=== PATIENT | male | born 1980 | race African-American/Black ===

== ENCOUNTER 2020-06-05 09:25 | Emergency (ER) | payer OTHER ==
[~2020-06-05] VITALS: Ht 175.3 cm; Wt 72.1 kg
--- NOTE | 2020-06-05 09:37 | NUR ---
ED Nurse Note: Pt ambulated to ED from home d/t RT flank pain that goes on his lower back since . Pt denies any nausea/vomiting, denies injury nor trauma nor difficulty urinating. Pt is AOx4, calm and cooperative to care; VSS on RA; afebrile on triage.
[2020-06-05] MEDS ORDERED: Omnipaque-300 100ml vial INJ PRN (09:45)
--- NOTE | 2020-06-05 09:45 | NUR ---
ED Nurse Note: blood and urine specimen collected, sent to lab
--- NOTE | 2020-06-05 09:49 | Emergency Room Report ---
History of Present Illness General Chief Complaint: Back Pain-No Injury Source: Patient Present Illness HPI 39-year-old male no past medical history no surgical history presents with achy right lower quadrant pain aggravated with movement alleviated with rest severity is moderate, intermittent no dysuria no fevers no chills no diarrhea patient presents for evaluation and treatment Allergies: Coded Allergies: No Known Allergies (Unverified , 06/05/20) COVID-19 Screening Contact w/high risk pt: No Experienced COVID-19 symptoms?: No COVID-19 Testing performed ELECTRIC SYSTEM OPERATOR: No Patient History Past Medical History: see triage record Reviewed Nursing Documentation: PMH: Agreed; PSxH: Agreed Nursing Documentation-PMH Past Medical History: No Stated History Review of Systems All Other Systems: negative except mentioned in HPI Physical Exam Vital Signs Date Time Temp Pulse Resp B/P (MAP) Pulse Ox O2 Delivery O2 Flow Rate FiO2 06/05/20 09:30 98.2 84 17 122/88 (99) 95 Room Air Sp02 EP Interpretation: reviewed, normal General Appearance: well appearing, no apparent distress, alert Head: normocephalic, atraumatic Eyes: bilateral eye PERRL, bilateral eye EOMI ENT: uvula midline, moist mucus membranes Neck: supple, thyroid normal, supple/symm/no masses Respiratory: lungs clear, no respiratory distress, no retraction, no accessory muscle use Cardiovascular #1: normal peripheral pulses, regular rate, rhythm, no edema, no gallop, no murmur Gastrointestinal: soft, no guarding, no rebound, tenderness - Right lower quadrant pain, no rebound no guarding Musculoskeletal: normal inspection Neurologic: alert, oriented x3 Psychiatric: mood/affect normal Skin: no rash, warm/dry Medical Decision Making Diagnostic Impression: Primary Impression: Strain of abdominal wall Qualified Codes: S39.011A - Strain of muscle, fascia and tendon of abdomen, initial encounter ER Course 39-year-old male presents with most likely abdominal wall strain differential includes UTI, pyelonephritis, appendicitis CT scan negative patient found to have an incidental lesion in the liver patient counseled to follow-up and get an ultrasound of the liver We will provide patient with pain regimen to go home with Disposition home with return precautions Laboratory Tests Test 06/05/20 09:45 White Blood Count 6.4 K/UL (4.8-10.8) Red Blood Count 5.52 M/UL (4.70-6.10) Hemoglobin 16.1 G/DL (14.2-18.0) Hematocrit 45.7 % (42.0-52.0) Mean Corpuscular Volume 83 FL (80-99) Mean Corpuscular Hemoglobin 29.1 PG (27.0-31.0) Mean Corpuscular Hemoglobin Concent 35.2 G/DL (32.0-36.0) Red Cell Distribution Width 11.2 % (11.6-14.8) L Platelet Count 277 K/UL (150-450) Mean Platelet Volume 6.1 FL (6.5-10.1) L Neutrophils (%) (Auto) 60.2 % (45.0-75.0) Lymphocytes (%) (Auto) 25.7 % (20.0-45.0) Monocytes (%) (Auto) 9.4 % (1.0-10.0) Eosinophils (%) (Auto) 2.4 % (0.0-3.0) Basophils (%) (Auto) 2.3 % (0.0-2.0) H Urine Color Yellow Urine Appearance Clear Urine pH 5 (4.5-8.0) Urine Specific [place] 1.025 (1.005-1.035) Urine Protein Negative (NEGATIVE) Urine Glucose (UA) Negative (NEGATIVE) Urine Ketones Negative (NEGATIVE) Urine Blood 2+ (NEGATIVE) H Urine Nitrite Negative (NEGATIVE) Urine Bilirubin Negative (NEGATIVE) Urine Urobilinogen Normal MG/DL (0.0-1.0) Urine Leukocyte Esterase Negative (NEGATIVE) Urine RBC 2-4 /HPF (0 - 0) H Urine WBC 0 /HPF (0 - 0) Urine Squamous Epithelial Cells None /LPF (NONE/OCC) Urine Bacteria Occasional /HPF (NONE) Urine Mucus Moderate /LPF (NONE/OCC) H Sodium Level 137 MMOL/L (136-145) Potassium Level 4.1 MMOL/L (3.5-5.1) Chloride Level 104 MMOL/L (98-107) Carbon Dioxide Level 26 MMOL/L (21-32) Anion Gap 7 mmol/L (5-15) Blood Urea Nitrogen 15 mg/dL (7-18) Creatinine 0.9 MG/DL (0.55-1.30) Estimated Glomerular Filtration Rate > 60 mL/min (>60) Glucose Level 111 MG/DL (74-106) H Calcium Level 8.7 MG/DL (8.5-10.1) Total Bilirubin 0.5 MG/DL (0.2-1.0) Aspartate Amino Transferase (AST) 15 U/L (15-37) Alanine Aminotransferase (ALT) 16 U/L (12-78) Alkaline Phosphatase 46 U/L (46-116) Total Protein 6.4 G/DL (6.4-8.2) Albumin 4.0 G/DL (3.4-5.0) Globulin 2.4 g/dL Albumin/Globulin Ratio 1.7 (1.0-2.7) Lipase 80 U/L (73-393) CT/MRI/US Diagnostic Results CT/MRI/US Diagnostic Results : Impression Procedure: CT Abdomen Pelvis w/Contrast Clinical Indication: Abdominal pain Technique: No oral contrast utilized, per emergency room physician request IV administration nonionic contrast. Venous obtained through the abdomen and pelvis. Multiplanar reconstructions were generated. Total dose length product 220 mGycm. CTDIvol(s) 4 mGy. Dose reduction achieved using automated exposure control Comparison: none Findings: Lack of enteric contrast limits assessment of the GI tract. The appendix is normal. No evidence of diverticulosis or diverticulitis. No small bowel di stention. No free or loculated intraperitoneal gas or fluid. There is a small umbilical hernia which contains fat. The distal esophagus,, stomach, duodenum are unremarkable. The liver is hypoattenuating, consistent with diffuse fatty change. An 11 mm low-attenuation lesion is in the periphery of segment 4A, demonstrates nonspecific soft tissue attenuation. Subcentimeter low-attenuation lesion also seen in segment 4A, too small to characterize. The gallbladder, bile ducts, pancreas, spleen, adrenals, kidneys are all unremarkable. No retroperitoneal or mesenteric mass or adenopathy. No pelvic mass or adenopathy. The included lung bases are clear. The bones are unremarkable. Impression: Limited assessment of the GI tract, due to lack of enteric contrast administration No definite acute abnormality Fatty liver 1 mm low-attenuation lesion in the periphery of segment 4A of the liver, nonspecific. Consider ultrasound to better characterize The CT scanner at [facility] is accredited by the [employer] and the scans are performed using protocols designed to limit radiation exposure to as low as reasonably achievable to attain images of sufficient resolution adequate for diagnostic evaluation. Dictated By: Carlos Bach MD Electronically Signed By:Carlos Bach MD Signed Date/Time06/05/20 1205 CC: Cameron Clark [id number] 0 Last Vital Signs Date Time Temp Pulse Resp B/P (MAP) Pulse Ox O2 Delivery O2 Flow Rate FiO2 06/05/20 09:30 98.2 84 17 122/88 (99) 95 Room Air Disposition: HOME, SELF-CARE Condition: Stable Scripts Lidocaine Patch* (Lidoderm Patch*) 1 Each Adh..patch 1 PATCH TOPIC DAILY, #7 PATCH 0 Refills Patch(es) may remain in place for up to 12 hours in any 24-hour period. Prov: Cameron Clark MD 06/05/20 Methocarbamol* (ROBAXIN-750*) 750 Mg Tablet 750 MG PO QID, #28 TAB 0 Refills Prov: Cameron Clark MD 06/05/20 Acetaminophen (Tylenol) 325 Mg Tablet 650 MG ORAL Q6H PRN for Prn Pain/Headache/Temp > 101, #30 TAB 0 Refills Prov: Cameron Clark MD 06/05/20 Naproxen* (NAPROSYN*) 250 Mg Tablet 500 MG ORAL TWICE A DAY, #60 TAB 0 Refills Prov: Cameron Clark MD 06/05/20 Referrals: NOT CHOSEN IPA/,REFERRING (PCP) [facility]. [facility] Patient Instructions: Muscle Strain, [id number] Additional Instructions: The patient was provided with discharge instructions, notified to follow-up with a primary care doctor and or specialist in the next 24-48 hours, and to return to the ED if they have worsening of their symptoms. Please note that this report is being documented using An[employer] technology. This can lead to erroneous entry secondary to incorrect interpretation by the dictating instrument. There was an incidental lesion noted on the liver, please have an outpatient ultrasound of the liver by your PCP Cameron Clark MD Jun 05, 2020 09:49
[2020-06-05 10:04] VITALS: BP 122/88
[2020-06-05 10:09] LABS: APPEARANCE,URINE CLEAR; BASOPHILS % (AUTO) 2.3 % (0.0-2.0); BILIRUBIN, URINE NEGATIVE (NEGATIVE); EOSINOPHILS % (AUTO) 2.4 % (0.0-3.0); GLUCOSE, URINE (UA) NEGATIVE (NEGATIVE); HEMATOCRIT 45.7 % (42.0-52.0); HEMOGLOBIN 16.1 G/DL (14.2-18.0); KETONES,URINE NEGATIVE (NEGATIVE); LEUKOCYTE ESTERASE ,URINE NEGATIVE (NEGATIVE); LYMPHOCYTES % (AUTO) 25.7 % (20.0-45.0); MEAN CORPUSCULAR VOLUME 83 FL (80-99); MONOCYTES % (AUTO) 9.4 % (1.0-10.0); NEUTROPHILS % (AUTO) 60.2 % (45.0-75.0); NITRITE,URINE NEGATIVE (NEGATIVE); PH,URINE 5 (4.5-8.0); PLATELET COUNT 277 K/UL (150-450); PROTEIN,URINE NEGATIVE (NEGATIVE); RED BLOOD COUNT 5.52 M/UL (4.70-6.10); RED CELL DISTRIBUTION WIDTH 11.2 % (11.6-14.8); UROBILINOGEN,URINE NORMAL MG/DL (0.0-1.0); WHITE BLOOD COUNT 6.4 K/UL (4.8-10.8)
[2020-06-05 10:10] LABS: COLOR,URINE YELLOW
[2020-06-05 10:19] LABS: ANION GAP 7 mmol/L (5-15); BLOOD UREA NITROGEN 15 mg/dL (7-18); CALCIUM 8.7 MG/DL (8.5-10.1); CARBON DIOXIDE 26 MMOL/L (21-32); CHLORIDE 104 MMOL/L (98-107); CREATININE 0.9 MG/DL (0.55-1.30); POTASSIUM 4.1 MMOL/L (3.5-5.1); SODIUM 137 MMOL/L (136-145)
[2020-06-05 10:23] LABS: ALANINE AMINOTRANSFERASE 16 U/L (12-78); ALBUMIN/GLOBULIN RATIO 1.7 (1.0-2.7); ALKALINE PHOSPHATASE 46 U/L (46-116); ASPARTATE AMINO TRANSFERASE 15 U/L (15-37); BILIRUBIN,TOTAL 0.5 MG/DL (0.2-1.0)
--- NOTE | 2020-06-05 11:29 | NUR ---
ED Nurse Note: pt returned from ct
[2020-06-05] MEDS ORDERED: Ketorolac 30mg Inj IV ONE (12:00)
--- NOTE | 2020-06-05 12:10 | Diagnostic Imaging Report ---
Clinical Indication: Abdominal pain Technique: No oral contrast utilized, per emergency room physician request IV administration nonionic contrast. Venous obtained through the abdomen and pelvis. Multiplanar reconstructions were generated. Total dose length product 220 mGycm. CTDIvol(s) 4 mGy. Dose reduction achieved using automated exposure control Comparison: none Findings: Lack of enteric contrast limits assessment of the GI tract. The appendix is normal. No evidence of diverticulosis or diverticulitis. No small bowel distention. No free or loculated intraperitoneal gas or fluid. There is a small umbilical hernia which contains fat. The distal esophagus,, stomach, duodenum are unremarkable. The liver is hypoattenuating, consistent with diffuse fatty change. An 11 mm low-attenuation lesion is in the periphery of segment 4A, demonstrates nonspecific soft tissue attenuation. Subcentimeter low-attenuation lesion also seen in segment 4A, too small to characterize. The gallbladder, bile ducts, pancreas, spleen, adrenals, kidneys are all unremarkable. No retroperitoneal or mesenteric mass or adenopathy. No pelvic mass or adenopathy. The included lung bases are clear. The bones are unremarkable. Impression: Limited assessment of the GI tract, due to lack of enteric contrast administration No definite acute abnormality Fatty liver 1 mm low-attenuation lesion in the periphery of segment 4A of the liver, nonspecific. Consider ultrasound to better characterize The CT scanner at [facility] is accredited by the [employer] and the scans are performed using protocols designed to limit radiation exposure to as low as reasonably achievable to attain images of sufficient resolution adequate for diagnostic evaluation.
[2020-06-05] MEDS ORDERED: ROBAXIN-750750 MG PO (13:57)
[2020-06-05] MEDS ORDERED: TYLENOL325 MG ORAL (13:57)
[2020-06-05] MEDS ORDERED: NAPROXEN250 MG ORAL (13:57)
[2020-06-05] MEDS ORDERED: LIDODERM700 M1 TOPIC (13:57)
[2020-06-05 14:09] VITALS: BP 120/86
--- NOTE | 2020-06-05 14:09 | NUR ---
ER DISCHARGE NOTE: Patient is cleared to be discharged per ERMD, pt is aox4, on room air, with stable vital signs. pt was given dc and prescription instructions, pt was able to verbalize understanding, pt id band and iv site removed without complications. pt is able to ambulate with steady gait. pt took all belongings.
== END 2020-06-05 14:09 | disposition home or self-care (01) ==
LOC: EMR 09:44
DX: S39.011A Strain of muscle, fascia and tendon of abdomen, initial encounter (principal); X58.XXXA Exposure to other specified factors, initial encounter; Y92.9 Unspecified place or not applicable; K76.0 Fatty (change of) liver, not elsewhere classified; K76.9 Liver disease, unspecified
CPT/HCPCS: 36415; 74177; 80053; 81003; 83690; 85025; 96374; 99284; J1885; Q9965

== ENCOUNTER 2020-08-30 20:13 | Emergency (ER) | payer OTHER ==
[~2020-08-30] VITALS: Ht 175.3 cm; Wt 68.0 kg
[~2020-08-30 20:13] MED LIST: LIDODERM700 M1 TOPIC; NAPROXEN250 MG ORAL; ROBAXIN-750750 MG PO; TYLENOL325 MG ORAL
[2020-08-30 20:23] VITALS: BP 131/87
--- NOTE | 2020-08-30 20:25 | NUR ---
ED Nurse Note: Patient walked into ED c/o left eye irritation onset since earlier today. patient reports of waking up and feeling itchyiness and redness on said left eye, patient does wear prescription glasses and reports of disturbances in vision. patient rates his pain a 8/10 pain. will wait for further orders
[2020-08-30] MEDS ORDERED: ACUVAIL 0.45%1 EACH OP (20:34)
[2020-08-30] MEDS ORDERED: POLYTRIM OP SOL10 ML LEFT EYE (20:34)
--- NOTE | 2020-08-30 20:37 | Emergency Room Report ---
History of Present Illness General Chief Complaint: Eye Problems Source: Patient Present Illness HPI Disclaimer: Please note that this report is being documented using [employer] technology. This can lead to erroneous entry secondary to incorrect interpretation by the dictating instrument. HPI: 39-year-old male presents for evaluation of left eye irritation and pain. Awoke this morning with swelling and crusting of the left eye. Denies change in his vision. Reports dry eye sensation. Denies photophobia. Reports increased lacrimation. Denies lid swelling, pain with extraocular movements, fever, chills. No recent illness. No trauma to the eye. Denies history of allergies. Wears glasses but does not wear contact lenses. PMH: Denied PSH: Denied Allergies: Denied Social Hx: Denied Allergies: Coded Allergies: No Known Allergies (Unverified , 06/05/20) COVID-19 Screening Contact w/high risk pt: No Experienced COVID-19 symptoms?: No COVID-19 Testing performed TAG MAKER: No Nursing Documentation-PMH Past Medical History: No Stated History Review of Systems All Other Systems: negative except mentioned in HPI Physical Exam Vital Signs Date Time Temp Pulse Resp B/P (MAP) Pulse Ox O2 Delivery O2 Flow Rate FiO2 08/30/20 20:17 98.2 89 18 131/87 (102) 97 Room Air General: Awake and alert, no acute distress HEENT: NC/AT. EOMI. visual acuity: 20/25 OD, 20/30 OS, 20/25 OU. No lid edema. No proptosis. No hypopyon, no hyphema. Mildly injected sclera. Mild purulent accumulation in the corners of the eyes. No foreign body identified. No chalazion or hypopyon. No evidence of blepharitis. Turner lamp examination does not show any fluorescein uptake. No ulcers or abrasions over the cornea. Negative Daniel sign. Ocular pressure OS 10 mmHg. Resp: Normal work of breathing Skin: Intact. No abrasions, laceration or rash over the exposed skin MSK: Normal tone and bulk. Moving all extremities. No obvious deformity. Neuro: Awake and alert. Mentating appropriately Medical Decision Making Diagnostic Impression: Primary Impression: Conjunctivitis ER Course 39-year-old male presents for evaluation of left eye irritation and pain beginning this morning. Most consistent with a mild conjunctivitis. He does not wear contact lenses will start on Polytrim and Toradol eyedrops. No evidence of pre or post septal cellulitis or glaucoma. Will follow up with ophthalmology and PMD as needed. Instructed to return with new or worsening symptoms. He understands and agrees with this treatment plan. Last Vital Signs Date Time Temp Pulse Resp B/P (MAP) Pulse Ox O2 Delivery O2 Flow Rate FiO2 08/30/20 20:23 98.2 79 18 131/87 97 Room Air Disposition: HOME, SELF-CARE Condition: Stable Scripts Ketorolac Tromethamine/Pf (ACUVAIL 0.45% OPHTH SOLUTION) 1 Each Droperette 1 EACH OP TID for 5 Days, #10 ML Prov: Refugio Kruse MD 08/30/20 Polymyxin/Trimethoprim (Polytrim Eye Drops) 10 Ml Drops 1 DROP LEFT EYE Q4H, #10 ML Prov: Refugio Kruse MD 08/30/20 Patient Instructions: Chemical Conjunctivitis Additional Instructions: Please follow-up with your primary care doctor in the next 1 to 3 days to discuss this emergency department visit and for reevaluation. If you have any new or worsening symptoms please return to the emergency department for reevaluation. Please note that this report is being documented using [employer]tv technology. This can lead to erroneous entry secondary to incorrect interpretation by the dictating instrument. Refugio Kruse MD Aug 30, 2020 20:37
[2020-08-30 20:40] VITALS: BP 125/82
--- NOTE | 2020-08-30 20:40 | NUR ---
ER DISCHARGE NOTE: Patient is cleared to be discharged per ERMD, pt is aox4, on room air, with stable vital signs. pt was given dc and prescription instructions, pt was able to verbalize understanding, pt id band removed without complications. pt is able to ambulate with steady gait. pt took all belongings.
== END 2020-08-30 20:40 | disposition home or self-care (01) ==
LOC: EMR 20:28
DX: H10.9 Unspecified conjunctivitis (principal)
CPT/HCPCS: 99282